=== PATIENT | female | born 1960 | race Caucasian/White ===

== ENCOUNTER 2022-09-17 09:04 | Outpatient (CLI) | payer OTHER, SELFPAY ==
--- NOTE | 2022-09-17 09:15 | CRLHL7_ITS ---
For Patients: As a result of the Century Cures Act, medical imaging exams and procedure reports are released immediately into your electronic medical record. You may view this report before your referring provider. If you have questions, please contact your health care provider. INDICATION: Left leg pain. COMPARISON: None. TECHNIQUE: Sagittal T1, T2, and STIR sequences. Axial T1 and T2 weighted sequences. FINDINGS: Trace degenerative retrolisthesis of L5 on S1 measures approximately 4 mm. Otherwise, normal alignment. No fractures. No vertebral body loss of height. No ligamentous injury. No suspicious osseous lesions. Normal conus terminates at L1-2. T12-L1: No spinal canal or neural foraminal narrowing. Prominent perineural nerve root sleeve cysts bilaterally. L1-2: No spinal canal neural foraminal narrowing. L2-3: Disc degeneration. Diffuse disc bulge eccentric to the left. No narrowing of spinal canal. Mild narrowing of the left neural foramen. No narrowing of the right neural foramen. L3-4: Disc degeneration posterior disc bulge. No narrowing of spinal canal. No neural foraminal narrowing. L4-5: Disc degeneration. Diffuse disc bulge eccentric to the left. No narrowing of the spinal canal. Left subarticular recess narrowing and potential impingement of traversing left L5 nerve root. Mild narrowing of the left neural foramen. No narrowing of the right neural foramen. L5-S1: Disc degeneration. Diffuse disc bulge. Posterior disc herniation measures approximately 3 mm in short axis. No narrowing of spinal canal. Left subarticular recess narrowing with potential impingement of the traversing left S1 nerve root. Mild narrowing of bilateral foramina. Mild facet arthropathy. Normal visualized SI joints. Normal perispinal soft tissues. IMPRESSION: 1. Trace degenerative retrolisthesis of L5 on S1. Otherwise normal alignment. No fractures 2. Lumbar spondylosis. 3. At L2-3, mild narrowing of the left neural foramina 4. At L4-5, disc degeneration. Diffuse disc bulge. No narrowing of the spinal canal. Potential impingement of the traversing left L5 nerve root. Mild narrowing of the left neural foramina 5. At L5-S1, left subarticular recess narrowing with potential impingement of the traversing left S1 nerve root. Mild narrowing of the bilateral neural foramina Dictated by Bandar Wong MD @ 09/18/2022 2:14:27 PM (Electronically Signed)
== END 2022-09-17 09:05 | disposition home or self-care (01) ==
PROVIDERS: PCP Family Medicine; Visit Provider Family Medicine
DX: M79.605 Pain in left leg (principal); M47.896 Other spondylosis, lumbar region; M51.36 Other intervertebral disc degeneration, lumbar region; M51.27 Other intervertebral disc displacement, lumbosacral region
CPT/HCPCS: 72148

== ENCOUNTER 2022-10-26 10:44 | Outpatient (CLI) | payer OTHER, SELFPAY | END 2022-10-26 10:45 | disposition home or self-care (01) | LOC: INJ CL 10:44 | PROVIDERS: PCP Family Medicine; Visit Provider Family Medicine | DX: M54.16 Radiculopathy, lumbar region (principal) | CPT/HCPCS: 64483; J1100; Q9966 ==